=== PATIENT | female | born 1985 | race African-American/Black ===

== ENCOUNTER 2023-05-14 02:32 | Emergency (ER) | payer OTHER, SELFPAY ==
[2023-05-14] MEDS ORDERED: Fluorescein Opthalmic Strip ONE (02:48)
[2023-05-14] MEDS ORDERED: Proparacaine 0.5% Opth 15 ML BOT ONE (02:48)
[2023-05-14] MEDS ORDERED: Erythromycin Base 0.5% Oint 1 GM TUBE ONE ×2 (03:28→03:34)
[2023-05-14] MEDS ORDERED: Ibuprofen 800 MG TAB ONE (03:29)
== END 2023-05-14 03:50 | disposition home or self-care (01) ==
LOC: CSHERS 02:32
DX: S05.02XA Injury of conjunctiva and corneal abrasion without foreign body, left eye, initial encounter (principal); I12.9 Hypertensive chronic kidney disease with stage 1 through stage 4 chronic kidney disease, or unspecified chronic kidney disease; N18.9 Chronic kidney disease, unspecified; X58.XXXA Exposure to other specified factors, initial encounter
CPT/HCPCS: 99283

== ENCOUNTER 2023-11-16 20:38 | Emergency (ER) | payer SELFPAY ==
[2023-11-16] MEDS ORDERED: Ketorolac Tromethamine 30 MG (1 mL) VIAL ONE (21:23)
== END 2023-11-16 21:28 | disposition home or self-care (01) ==
LOC: CSHERS 20:38
DX: J06.9 Acute upper respiratory infection, unspecified (principal); I10 Essential (primary) hypertension
CPT/HCPCS: 96372; 99283; J1885